=== PATIENT | female | born 1945 | race Caucasian/White ===

== ENCOUNTER 2025-01-27 13:14 | Outpatient (CLI) | payer MEDICARE, SELFPAY ==
--- NOTE | ~2025-01-27 | DEXA_ITS ---
Bone Density Report Name: LONDON GAONA Age: 80 Sex: Female Ethnicity: White Date of : 1945 Indication: postmenopausal; screening for osteoporosis; height loss; prior fracture; Referring Provider: RuchiLeyda Study: Bone densitometry was performed. Exam Date: January 27, 2025 Accession number: [id number] Bone Density: Region BMD T-score Z-score Classification AP Spine(L1-L4) 0.879 -1.5 1.0 Osteopenia Femoral Neck (Left) 0.599 -2.2 0.0 Osteopenia Total Hip (Left) 0.648 -2.4 -0.5 Osteopenia Femoral Neck (Right) 0.495 -3.2 -1.0 Osteoporosis Total Hip (Right) 0.597 -2.8 -0.9 Osteoporosis Total Hip Mean 0.623 -2.6 -0.7 Osteoporosis World Health Organization criteria for BMD impression classify patients as: Normal (T-score at or above -1.0), Osteopenia (T-score between -1.0 and -2.5), or Osteoporosis (T-score at or below -2.5). 10-year Fracture Risk: FRAX not reported because: Some T-score for Spine Total or Hip Total or Femoral Neck at or below -2.5 Clinical Information Provided by Patient: Has had a low trauma fracture Has used the following medications: Vitamin D, Calcium Patient maximum height was 62 Menopause Age: 47 No regular weight bearing exercise Drinks caffeinated beverages Onset of menses at age 14 Number of children 2 Impression: The patient has established osteoporosis, based on the Right Femoral Neck T-score and the existence of a prior fracture. The patient has risk factors, including: previous fracture. Discussion: HIGH RISK OF FRACTURE. BONE DENSITY IS UNDESIRABLY LOW AT ONE OR MORE SKELETAL SITES, CONSISTENT WITH POSTMENOPAUSAL OSTEOPOROSIS. This patient's lowest T-score, in a patient who has previously fractured, meets the World Health Organization's (WHO) criteria for severe osteoporosis. In untreated patients, the risk of osteoporotic fracture increases approximately two-fold for each 1.0 SD decrease in T-score. Low bone density is not the only risk factor for fracture; also consider factors such as patient's age, frailty or poor health, risk of falling, risk of injury, previous osteoporotic fracture, family history of osteoporosis, cigarette smoking, low body weight, etc. Not everyone with low bone mineral density has osteoporosis; osteomalacia and other metabolic bone disorders should also be considered. Patients who have osteoporosis should be evaluated for specific diseases and conditions (secondary causes) that may cause or contribute to bone loss. The [place] [employer] (AACE) and National Osteoporosis Foundation (NOF) recommend pharmacologic intervention for all postmenopausal women whose T-score is in this range. The patient should follow a healthful lifestyle (good nutrition with adequate calcium and vitamin D, and appropriate weight-bearing exercise). Follow-Up: Consider a repeat BMD and Vertebral Fracture Assessment (VFA) exam in 2 years or sooner if medically necessary, to reassess this patient's status. Reported by: ALEYDA on 01/27/2025 1:50:00 PM. Reviewed, dictated and finalized at location A.
--- NOTE | ~2025-01-27 | MM_ITS ---
CORRECTED REPORT addendum added [facility] [place] This report was recreated on 02/03/2025.Original report was ADDENDUM This is an addendum to a previously dictated report. Comparison mammograms from 12/13/2023 and 12/02/2022 have become available since the initial dictation. No change in the body report, impression, recommendation or BI-RADS category. EXAMINATION: MM screening julieth BI w lexi HISTORY: Screening TECHNIQUE: Craniocaudal and mediolateral oblique 3-D tomosynthesis images were obtained and synthetic 2-D images were generated. CAD analysis was submitted and interpreted. COMPARISON: No prior mammogram is available for comparison at this institution. BREAST PARENCHYMAL COMPOSITION: There are scattered areas of fibroglandular density. FINDINGS: There is no evidence of suspicious mass or architectural distortion to suggest malignancy. Indeterminant calcifications in the upper-outer quadrant of the right breast, middle to posterior depth. Indeterminate calcifications in the lower inner quadrant of the left breast, middle depth. IMPRESSION: 1. Indeterminate calcifications in the upper outer quadrant of the right breast, middle to posterior depth. The study is incomplete. A diagnostic mammogram are recommended. 2. Indeterminate calcifications in the lower inner quadrant of the left breast, middle depth. The study is incomplete. A diagnostic mammogram are recommended. BI-RADS 0: Incomplete-Need additional imaging evaluation. Reviewed, dictated and finalized at location Q. IMPRESSION: 1. Indeterminate calcifications in the upper outer quadrant of the right breast , middle to posterior depth. The study is incomplete. A diagnostic mammogram ar e recommended. 2. Indeterminate calcifications in the lower inner quadrant of the left breast, middle depth. The study is incomplete. A diagnostic mammogram are recommended. BI-RADS 0: Incomplete-Need additional imaging evaluation.
== END 2025-01-27 13:15 | disposition home or self-care (01) ==
LOC: MICIMG 13:18
PROVIDERS: PCP Internal Medicine; Visit Provider Internal Medicine
DX: Z12.31 Encounter for screening mammogram for malignant neoplasm of breast (principal); R92.8 Other abnormal and inconclusive findings on diagnostic imaging of breast; M81.0 Age-related osteoporosis without current pathological fracture; M85.89 Other specified disorders of bone density and structure, multiple sites; Z78.0 Asymptomatic menopausal state; Z13.820 Encounter for screening for osteoporosis
CPT/HCPCS: 77063; 77067; 77080